=== PATIENT | female | born 1955 | race Caucasian/White ===

== ENCOUNTER → 2019-01-10 | Outpatient (CLI) | payer SELFPAY ==
--- NOTE | 2019-01-10 15:29 | DIREP ---
PROCEDURE:MAMMO BILATERAL DIAGNOSTIC COMPARISON:None. INDICATIONS:CYST OF BREAST BREAST COMPOSITION:Scattered fibroglandular density DIAGNOSTIC MAMMOGRAM: Bilateral CC MLO views Computer Assisted Detection (CAD) was utilized. Palpable marker noted in the outer inferior anterior left breast. No mass lesion or clustered microcalcification in either breast. BREAST SONOGRAM:Sonography of left breast and axilla was performed. No suspicious sonographic findings. IMPRESSION:No mammographic evidence of malignancy. 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 If there is any new palpable or continued pain repeat diagnostic evaluation can be performed. Otherwise yearly screening mammogram and self breast examination per ACR recommendations. OVERALL FINAL ASSESSMENT: BI-RADS 1-negative exam Dictated by: Gumaro Hanks MD on 01/10/2019 at 03:09 PM
--- NOTE | 2019-01-10 15:31 | DIREP ---
PROCEDURE:US BREAST-LT CONCLUSION:Please refer to the accompanying Diagnostic Mammogram Report, which will be available once transcribed and signed. Dictated by: Gumaro Hanks MD on 01/10/2019 at 03:29 PM
== END | disposition home or self-care (01) ==
LOC: RAD 13:35
PROVIDERS: ATTEND Internal Medicine
DX: N60.09 Solitary cyst of unspecified breast (principal)
CPT/HCPCS: 76641; 77066